=== PATIENT | female | born 1980 | race Caucasian/White ===

== ENCOUNTER → 2016-10-08 | Outpatient (CLI) | payer OTHER ==
[~2016-10-08] MED LIST: ALPRAZOLAM; APRI 0.15 MG-0.1 TAB PO; BCP TD; FLUOXETINE20 MG PO; KLONOPIN1 MG PO; RISPERDAL 1M1 MG/TAB PO; TEMAZEPAM PO; TRAZODONE HCL100 MG PO; XANAX0.25 MG PO
== END ==
LOC: BHSO 15:17
DX: F31.81 Bipolar II disorder (principal)

== ENCOUNTER → 2016-11-16 | Outpatient (CLI) | payer OTHER | LOC: BHSO 15:29 | DX: F31.81 Bipolar II disorder (principal) ==

== ENCOUNTER → 2017-01-19 | Outpatient (CLI) | payer OTHER | LOC: BHSO 15:33 | DX: F31.81 Bipolar II disorder (principal) ==

== ENCOUNTER → 2017-04-14 | Outpatient (CLI) | payer OTHER | LOC: BHSO 15:10 | DX: F31.81 Bipolar II disorder (principal) ==

== ENCOUNTER → 2017-07-05 | Outpatient (CLI) | payer OTHER | LOC: BHSO 15:12 | DX: F31.81 Bipolar II disorder (principal) ==

== ENCOUNTER → 2017-11-01 | Outpatient (CLI) | payer SELFPAY | LOC: BHSO 14:39 | DX: F31.81 Bipolar II disorder (principal) | CPT/HCPCS: G0463 ==

== ENCOUNTER → 2018-01-20 | Outpatient (CLI) | payer OTHER | LOC: BHSO 14:04 | DX: F31.81 Bipolar II disorder (principal) | CPT/HCPCS: G0463 ==

== ENCOUNTER → 2018-04-10 | Outpatient (CLI) | payer OTHER | LOC: BHSO 13:08 | DX: F31.81 Bipolar II disorder (principal) | CPT/HCPCS: G0463 ==